=== PATIENT | female | born 1995 | race Caucasian/White ===

== ENCOUNTER → 2022-11-09 | Outpatient (CLI) | payer OTHER ==
--- NOTE | 2022-11-09 10:55 | US ---
EXAMINATION TYPE: Transabdominal DATE OF EXAM: 11/09/2022 10:42 AM COMPARISON: NONE CLINICAL HISTORY: Z36.89 CONFIRM GESTATIONAL AGE. Confirm dates, pt has no complaints at this time EXAM PERFORMED: Transabdominal (TA) EXAM MEASUREMENTS: GESTATIONAL AGE / DATING Physician Established: (9 weeks/1 days) EDC: 06/13/2023 Dates by LMP: (9 weeks/1 days) EDC: 06/13/2023 Dates by First Scan: No previous this is first scan Dates by Current Scan for: (9 weeks/1 days) EDC: 06/13/2023 MATERNAL ANATOMY Uterus: 13.6 x 6.0 x 7.5 cm Right Ovary: 3.9 x 3.5 x 3.7 cm Left Ovary: 2.5 x 1.9 x 2.5 cm Post CDS / Adnexa: wnl Presence of free fluid: No Presence of corpus luteal cyst: Right Ovary= 2.9 x 2.7 x 2.7 cm Presence of subchorionic bleed: `No GESTATION / SURVEY CRL: 2.4 cm (9 weeks/1 days) MSD: wnl Yolk Sac (normal less than 6mm): 4mm Heart Rate: 163 bpm Rhythm: Normal IUP: Viable IUP Age Appropriate Anatomy Cord Insertion: Possible herniation at CI- follow-up recommended Single, viable IUP/ Possible oomphalocele, recommend F/U IMPRESSION: 1. Single intrauterine gestation estimated at 9 weeks 1 day gestation based on the crown-rump length. Cardiac activity measures 163 bpm. 2. Abnormal finding anterior abdominal wall at cord insertion. Short-term follow-up of anatomy is recommended A Yellow level critical message alert has been initiated for Sonia Mejia DO via the [employer] Critical Results System on 11/09/2022 10:53 AM. This message alert has been sent to Sonia Mejia DO via the preferences provided by the clinician for the receipt of Radiology Critical Findings. Mess age ID [id number].
== END | disposition home or self-care (01) ==
LOC: RADUSWWP 10:14
PROVIDERS: ATTEND Obstetrics & Gynecology
DX: Z36.89 Encounter for other specified antenatal screening (principal); Z3A.09 9 weeks gestation of pregnancy
CPT/HCPCS: 76801

== ENCOUNTER 2023-06-09 07:41 | Inpatient (IN) | payer OTHER ==
[2023-06-09] MEDS ORDERED: METHYLERGONOVINE 0.2 MG/ML 1 ML AMP IM PRN (08:31)
[2023-06-09] MEDS ORDERED: LIDOCAINE 0.5% (PF) 5 MG/ML (50 ML SDV) SQ PRN (08:31)
[2023-06-09] MEDS ORDERED: miSOPROStoL 200 MCG TAB PO PRN (08:31)
[2023-06-09] MEDS ORDERED: TERBUTALINE 1 MG/ML VIAL SQ PRN (08:31)
[2023-06-09] MEDS ORDERED: CARBOPROST TROMETHAMINE 250 MCG/ML 1 ML AMP IM PRN (08:31)
[2023-06-09] MEDS ORDERED: OXYTOCIN 10 UNIT/ML 1 ML VIAL IM PRN (08:31)
[2023-06-09] MEDS ORDERED: TRANEXAMIC 1,000 MG/100ML-NACL 1,000 MG in EMPTY BAG 1 BAG IV PRN (08:31)
--- NOTE | 2023-06-09 08:39 | P.HPOB ---
History of Present Illness H&P Date: 06/09/23 Chief Complaint: Contractions This patient is a 28-year-old 2 para 1 female estimated date of confinement 06/13/2023 estimated gestational age 39-3/7 weeks who presents to labor and delivery with complaints of contractions. Patient's care is per Dr. Mejia and is complicated by an abnormal anatomy ultrasound that was suggestive of an omphalocele. Patient was referred to maternal- medicine and the level III ultrasound at that time was normal. Patient's is also been complicated by polyhydramnios and large for gestational age. Patient's been having nonstress tests twice weekly and most recent ultrasound done on May 29 showed the baby to be 8 lbs. 11 oz. which is greater than the 90th percentile. Dr. Mejia has recommended section for delivery due to the risk of shoulder dystocia however patient declined. I have re-discussed this with the patient today she still declines/refuses section for delivery and indicates she is willing to take the risk of a shoulder dystocia and any sequela including permanent injury to her or her baby from this. Patient's also had a positive group B strep culture and states that she also does not want any antibiotics. Again I discussed the risks including possible infection and/or she declines. Patient does not want any intervention at this time including artificial rupture membranes or Pitocin. Past obstetrical history also appears significant for hemorrhage with her first baby that required blood transfusion. Review of Systems Genitourinary: Reports Menstruation: Reports amenorrhea Past Medical History Past Medical History: No Reported History History of Any Multi-Drug Resistant Organisms: None Reported Past Surgical History: No Surgical Hx Reported Past Psychological History: No Psychological Hx Reported Smoking Status: Never smoker Past Alcohol Use History: None Reported Past Drug Use History: Marijuana Medications and Allergies Home Medications Medication Instructions Recorded Confirmed Type Albuterol Inhaler [Ventolin 2 puff INHALATION Q4HR PRN 05/27/14 06/26/15 History Inhaler] Amoxicillin 800 mg PO BID #200 ml 06/26/15 Rx Allergies Allergy/AdvReac Type Severity Reaction Status Date / Time No Known Allergies Allergy Verified 06/26/15 17:55 Exam - OBG Physical Exam Abdomen: bowel sounds normal, no diffuse tenderness, no bruit present, no guarding noted, no hepatomegaly, no splenomegaly, no mass Vulva: both: normal Vagina: normal moisture, no discharge Cervix: no lesion, no discharge Uterus: enlarged (Fundal height is [address] Mejia) Results labs show her blood type is O positive, rubella immune, RPR is nonreactive, HIV is nonreactive, hepatitis B and C were negative, group B strep was positive, Glucola was 122. Ultrasounds as above. Assessment and Plan Assessment: This is a 28-year-old 2 para 1 female 39-3/7 weeks gestation who is admitted to labor and delivery with complaints of regular painful contractions found to be 6 cm dilated in early labor. Patient has a positive group B strep culture and per standard of care she is recommended to be started on IV antibiotics however she refuses. I did have a discussion with her and apparently she's had this discussion with Dr. Mejia in the office that unfortunately this increases her baby's risk of significant infection and nontreatment could result in this infection and/or . She and her partner acknowledge this risk and still declined antibiotics. I also reviewed her records and ultrasound and it appears she's had a discussion with Dr. Mejia and was recommended to have a section for delivery secondary to large for gestational age greater than the 90th percentile and increased risk of shoulder dystocia and/or maternal trauma. I did offer her section at this time and I also rediscussed these risks including risk of shoulder dystocia including possible injury including, but not limited to, brachial plexus injury or other permanent injuries. I explained this in detail to the patient (and her partner) and she understands that this is unpredictable event and even if the appropriate maneuvers are done at the time of delivery it could still result in an adverse maternal or outcome. I also informed her that at any time she changes her mind and wishes to proceed with section this would be done immediately. All the patient's questions were answered. (1) 39 weeks gestation of Current Visit: Yes Status: Acute Code(s): Z3A.39 - 39 WEEKS GESTATION OF SNOMED Code(s): 87255063 (2) Normal labor Current Visit: Yes Status: Acute Code(s): O80 - ENCOUNTER FOR FULL-TERM UNCOMPLICATED DELIVERY; Z37.9 - OUTCOME OF DELIVERY, UNSPECIFIED SNOMED Code(s): 96028256 (3) Polyhydramnios affecting Current Visit: Yes Status: Acute Code(s): O40.9XX0 - POLYHYDRAMNIOS, UNSP TRIMESTER, NOT APPLICABLE OR UNSP SNOMED Code(s): 09053316 (4) Large for gestational age fetus Current Visit: Yes Status: Acute Code(s): WWN6499 - SNOMED Code(s): 521620515 (5) Group B streptococcal carriage complicating Current Visit: Yes Status: Acute Code(s): O99.820 - STREPTOCOCCUS B CARRIER STATE COMPLICATING SNOMED Code(s): 538265703544362 (6) Non compliance with medical treatment Current Visit: Yes Status: Acute Code(s): Z91.199 - PT NONCOMPL WITH OTHER MED TRTMT AND REGIMEN D/T UNSP REASON SNOMED Code(s): 2800055
[2023-06-09] MEDS ORDERED: LACTATED RINGERS 1,000 ML IV SCH (08:45)
[2023-06-09 09:43] LABS: Basophils % (A) 0 %; Eosinophils # (A) 0.1 k/uL (0-0.7); Eosinophils % (A) 1 %; HCT 33.8 % (34.0-46.0); HGB 11.5 gm/dL (11.4-16.0); Lymphocytes # (A) 1.6 k/uL (1.0-4.8); Lymphocytes % (A) 13 %; MCH 28.2 pg (25.0-35.0); MCHC 34.2 g/dL (31.0-37.0); MCV 82.6 fL (80.0-100.0); Mean Platelet Volume 9.2; Monocytes # (A) 0.6 k/uL (0-1.0); Monocytes % (A) 5 %; Neutrophils % (A) 81 %; Platelet Count 215 k/uL (150-450); RBC 4.09 m/uL (3.80-5.40); RDW 13.4 % (11.5-15.5); WBC 12.3 k/uL (3.8-10.6)
[2023-06-09 10:13] LABS: Amphetamine Screen,Urine Not Detected (NotDetected); Barbiturate Screen,Urine Not Detected (NotDetected); Benzodiazepines Screen,Urine Not Detected (NotDetected); Cocaine Screen,Urine Not Detected (NotDetected); Methadone Screen, Urine Not Detected (NotDetected); Opiate Screen,Urine Not Detected (NotDetected); Oxycodone Screen, Urine Not Detected (NotDetected); Phencyclidine Screen,Urine Not Detected (NotDetected); Tricyclic Antidepressant,Urine Not Detected (NotDetected); Urn Cannabinoid Scrn Not Detected (NotDetected)
[2023-06-09] MEDS: OXYTOCIN 30 UNITS/500 ML NS 30 UNIT in SALINE 1 500ML.BAG IV SCH ×2 (14:46→15:17)
[2023-06-09] MEDS ORDERED: BENZOCAINE/MENTHOL SPRAY 1 GM/SPRAY AEROSOL TOPICAL PRN ×2 (15:13→15:15)
--- NOTE | 2023-06-09 15:14 | P.PROBDLV ---
Vaginal Delivery Note - . Vaginal Delivery Note: Normal spontaneous vaginal delivery viable female Apgars 9 and 9 delivery time is 1442 hrs. Please see dictated H&P for intimate details of this patient's admission. In brief summary this is a 28-year-old 2 para 1 female 39-3/7 weeks gestation who is admitted to labor and delivery with complaints of regular painful contractions. Patient's found to be 6 cm dilated on admission. Please see dictated H&P for discussion of route of delivery was recommended by Dr. Mejia the patient proceed with section secondary to suspected macrosomia however patient declined. I did have another discussion with her and after discussing benefits and risks of vaginal delivery she wished to proceed with vaginal delivery with the understanding of possible complications that could not be predicted. Patient has a positive group B strep culture however also refused antibiotic treatment. Again we discussed possible infectious risks to the baby and the postal service mail processor did talk to the patient as well. Patient's labor progressed quite slowly when she had about 8 cm dilated she requested rupture of membranes. This was done for clear fluid. Patient progressed in the next few hours thereafter and got to complete. Patient pushed the head to the perineum. Posterior perineum was supported we have controlled delivery of the infant's head over the intact perineum. Mouth and nares are bulb suctioned. 's head was occiput right anterior. There is no evidence of a nuchal cord. Due to suspected macrosomia, patient is then placed in Maurice position. With gentle downward traction patient is able to deliver the anterior shoulder and then posterior shoulder and rest this infant's body. This is a vigorous viable female infant Apgars are 9 and 9 delivery time is 1442 hrs. After delivery of the the infant is late on the mother's abdomen. After the umbilical cord is done pulsating is doubly clamped and then cut. The placenta is then spontaneously delivered intact. There is some uterine atony at this time and due to her history of hemorrhage with her first baby at prophylactically give her a dose of Methergine and Pitocin. This time with uterine massage the uterus firms up well and bleeding subsides. Inspection of perineum shows second-degree perineal lacerations repaired with 3-0 Vicryl usual fashion. She also some small periurethral lacerations that did not require repair. All counts are correct 3. Estimated blood loss is approximately 300 mL. There are no complications. weight was 4340 g or 9 lbs. 9 oz.
[2023-06-09] MEDS ORDERED: diphenhydrAMINE 25 MG CAP PO PRN (15:15)
[2023-06-09] MEDS ORDERED: ACETAMINOPHEN TAB 325 MG TAB PO PRN (15:15)
[2023-06-09] MEDS ORDERED: HYDROCORTISONE 2.5% RECTAL CREAM 30 GM TUBE RECTAL PRN (15:15)
[2023-06-09] MEDS ORDERED: diphenhydrAMINE 50 MG/ML 1 ML VIAL IVP PRN (15:15)
[2023-06-09] MEDS ORDERED: SIMETHICONE 80 MG CHEWABLE PO PRN (15:15)
[2023-06-09] MEDS ORDERED: bisacodyL 10 MG SUPP RECTAL PRN (15:15)
[2023-06-09] MEDS ORDERED: IBUPROFEN 600 MG TAB PO PRN (15:15)
[2023-06-09] MEDS ORDERED: ZOLPIDEM 5 MG TAB PO PRN (15:15)
[2023-06-09] MEDS ORDERED: LANOLIN CREAM 5 GM TUBE TOPICAL PRN (15:15)
[2023-06-09] MEDS ORDERED: OXYTOCIN 30 UNITS/500 ML NS 30 UNIT in SALINE 1 500ML.BAG IV SCH (15:30)
[2023-06-09 20:28] VITALS: RESP 16
[2023-06-09] MEDS: SENNOSIDES-DOCUSATE SODIUM 1 EACH TAB PO SCH (20:34)
--- NOTE | 2023-06-10 06:54 | P.PNOBGVD ---
Subjective - Subjective Patient reports: Reports appetite normal, Reports voiding normally, Reports pain well controlled, Reports ambulating normally : doing well, in NICU (Babies requiring IV antibiotics due to an abnormal CBC) Objective - Latest Vital Signs Latest vital signs: Vital Signs Temp Pulse Resp BP Pulse Ox 06/09/23 23:44 98.7 F 98 16 117/79 96 06/09/23 20:00 97.9 F 99 16 108/70 99 06/09/23 17:01 97.4 F L 89 18 125/70 06/09/23 16:31 89 18 136/63 06/09/23 16:01 90 18 135/65 06/09/23 15:46 86 18 149/70 06/09/23 15:31 87 18 117/66 06/09/23 15:16 95 16 132/72 06/09/23 15:01 97.8 F 91 18 138/80 06/09/23 13:30 96.9 F L 123 H 18 135/86 97 Intake and Output 06/09/23 06/09/23 06/10/23 14:59 22:59 06:59 Intake Total 500 Output Total 505 Balance -5 Intake: Intake, IV Titration 500 Amount Oxytocin 30 Units/500 ml 500 Ns 30 unit In Saline 1 500ml.bag @ Per Protocol IV .Q0M [facility] Rx#:[id number] Output: Estimated Blood Loss 300 Output, Quantitative 205 Blood Loss Other: # Voids 3 1 Weight 102.058 kg - Exam Lungs: bilateral: normal Chest: Normal S1, Normal S2 Extremities: Present: normal Abdomen: Present: normal appearance, soft Uterus: Present: normal, firm - Labs Labs: Abnormal Lab Results - Last 24 Hours (Table) 06/09/23 Range/Units 08:34 WBC 12.3 H (3.8-10.6) k/uL Hct 33.8 L (34.0-46.0) % Neutrophils # 10.0 H (1.3-7.7) k/uL Assessment and Plan Assessment: day #1. Patient is resting without new complaints. Vital signs are stable she's afebrile. Uterus is firm nontender she's having normal lochia. Patient's baby is in special care due to an abnormal CBC and receiving IV antibiotics. Plan today is to continue routine care. We'll most likely discharge home tomorrow. (1) 39 weeks gestation of Current Visit: Yes Status: Acute Code(s): Z3A.39 - 39 WEEKS GESTATION OF SNOMED Code(s): 40911064 (2) Normal labor Current Visit: Yes Status: Acute Code(s): O80 - ENCOUNTER FOR FULL-TERM UNCOMPLICATED DELIVERY; Z37.9 - OUTCOME OF DELIVERY, UNSPECIFIED SNOMED Code(s): 06703247 (3) Polyhydramnios affecting Current Visit: Yes Status: Acute Code(s): O40.9XX0 - POLYHYDRAMNIOS, UNSP TRIMESTER, NOT APPLICABLE OR UNSP SNOMED Code(s): 51425564 (4) Large for gestational age fetus Current Visit: Yes Status: Acute Code(s): OEJ2876 - SNOMED Code(s): 792999122 (5) Group B streptococcal carriage complicating Current Visit: Yes Status: Acute Code(s): O99.820 - STREPTOCOCCUS B CARRIER STATE COMPLICATING SNOMED Code(s): 498070810101474 (6) Non compliance with medical treatment Current Visit: Yes Status: Acute Code(s): Z91.199 - PT NONCOMPL WITH OTHER M ED TRTMT AND REGIMEN D/T UNSP REASON SNOMED Code(s): 9362993
[2023-06-10 07:31] LABS: Basophils % (A) 0 %; Eosinophils # (A) 0.1 k/uL (0-0.7); Eosinophils % (A) 0 %; HCT 29.1 % (34.0-46.0); Lymphocytes # (A) 1.7 k/uL (1.0-4.8); Lymphocytes % (A) 14 %; MCH 28.2 pg (25.0-35.0); MCV 82.8 fL (80.0-100.0); Mean Platelet Volume 9.4; Monocytes # (A) 0.7 k/uL (0-1.0); Monocytes % (A) 5 %; Neutrophils # (A) 9.8 k/uL (1.3-7.7); Neutrophils % (A) 79 %; Platelet Count 201 k/uL (150-450); RBC 3.52 m/uL (3.80-5.40); RDW 13.8 % (11.5-15.5); WBC 12.3 k/uL (3.8-10.6)
[2023-06-10 07:49] LABS: HGB 9.9 gm/dL (11.4-16.0)
[2023-06-10] MEDS: SENNOSIDES-DOCUSATE SODIUM 1 EACH TAB PO SCH ×2 (08:56→18:28)
--- NOTE | 2023-06-11 05:48 | P.PNOBGVD ---
Subjective - Subjective Patient reports: Reports appetite normal, Reports voiding normally, Reports pain well controlled, Reports ambulating normally : doing well, in NICU Objective - Latest Vital Signs Latest vital signs: Vital Signs Temp Pulse Resp BP Pulse Ox 06/11/23 04:00 98.1 F 76 16 116/68 06/11/23 00:00 97.9 F 85 16 116/69 06/10/23 16:00 98.7 F 99 16 118/78 99 06/10/23 08:00 98.7 F 104 H 16 100/51 Intake and Output 06/10/23 06/10/23 06/11/23 14:59 22:59 06:59 Intake Total 600 Balance 600 Intake: Oral 600 Other: # Voids 3 2 2 - Exam Lungs: bilateral: normal Chest: Normal S1, Normal S2 Extremities: Present: normal Abdomen: Present: normal appearance, soft Uterus: Present: normal, firm - Labs Labs: Abnormal Lab Results - Last 24 Hours (Table) 06/10/23 Range/Units 07:15 WBC 12.3 H (3.8-10.6) k/uL RBC 3.52 L (3.80-5.40) m/uL Hgb 9.9 L D (11.4-16.0) gm/dL Hct 29.1 L (34.0-46.0) % Neutrophils # 9.8 H (1.3-7.7) k/uL Assessment and Plan Assessment: day #2. Patient is resting without new complaints. Vital signs are stable she's afebrile. Uterus is firm nontender and she is having normal lochia. Patient's baby is still in special care receiving IV antibiotics. Plan today is to continue routine care discharge home later today. (1) 39 weeks gestation of Current Visit: Yes Status: Acute Code(s): Z3A.39 - 39 WEEKS GESTATION OF SNOMED Code(s): 31935354 (2) Normal labor Current Visit: Yes Status: Acute Code(s): O80 - ENCOUNTER FOR FULL-TERM UNCOMPLICATED DELIVERY; Z37.9 - OUTCOME OF DELIVERY, UNSPECIFIED SNOMED Code(s): 86045251 (3) Polyhydramnios affecting Current Visit: Yes Status: Acute Code(s): O40.9XX0 - POLYHYDRAMNIOS, UNSP TRIMESTER, NOT APPLICABLE OR UNSP SNOMED Code(s): 20647875 (4) Large for gestational age fetus Current Visit: Yes Status: Acute Code(s): MMV1524 - SNOMED Code(s): 342353257 (5) Group B streptococcal carriage complicating Current Visit: Yes Status: Acute Code(s): O99.820 - STREPTOCOCCUS B CARRIER STATE COMPLICATING SNOMED Code(s): 985435668643410 (6) Non compliance with medical treatment Current Visit: Yes Status: Acute Code(s): Z91.199 - PT NONCOMPL WITH OTHER MED TRTMT AND REGIMEN D/T UNSP REASON SNOMED Code(s): 5453614
--- NOTE | 2023-06-11 05:53 | P.DS ---
Providers Date of admission: 06/09/23 07:51 Expected date of discharge: 06/11/23 Attending physician: Sonia Mejia Primary care physician: Stated None - Discharge Diagnosis(es) (1) 39 weeks gestation of Current Visit: Yes Status: Acute (2) Normal labor Current Visit: Yes Status: Acute (3) Polyhydramnios affecting Current Visit: Yes Status: Acute (4) Large for gestational age fetus Current Visit: Yes Status: Acute (5) Group B streptococcal carriage complicating Current Visit: Yes Status: Acute (6) Non compliance with medical treatment Current Visit: Yes Status: Acute Hospital Course: Please see dictated H&P for intimate details of this patient's admission. Brief summary this is a 28-year-old 2 para 1 female 39-3/7 weeks admitted to labor and delivery in active labor. Patient is admitted she and does refuse IV antibiotics for positive strep culture. She goes on to have a vaginal delivery viable female . Please see dictated delivery note. day #2 patient's felt be stable for discharge home follow up with Dr. Mejia 6 weeks. Procedures: Normal spontaneous vaginal delivery Patient Condition at Discharge: Good Plan - Discharge Summary New Discharge Prescriptions: New Ibuprofen [Motrin] 600 mg PO Q6HR PRN #30 tab PRN Reason: Mild Pain (Scale 1 To 3) No Action Vit No.179/Iron/Folic [ Tablet] 1 each PO DAILY Discharge Medication List Vit No.179/Iron/Folic [ Tablet] 1 each PO DAILY 06/09/23 [History] Ibuprofen [Motrin] 600 mg PO Q6HR PRN #30 tab 06/11/23 [Rx] Follow up Appointment(s)/Referral(s): Sonia Mejia DO [Doctor of Osteopathic Medicine] - 07/22/23 11:30 am (Please see Dr. Mejia for a check on 07/22/2023 @11:30) Patient Instructions/Handouts: Vaginal Delivery (DC) Activity/Diet/Wound Care/Special Instructions: No intercourse or anything per vagina for 6 weeks. Please call if any fever, chills, excessive vaginal bleeding, and/or abdominal pain Discharge Disposition: HOME SELF-CARE
[2023-06-11] MEDS: SENNOSIDES-DOCUSATE SODIUM 1 EACH TAB PO SCH (08:04)
[2023-06-11 16:58] VITALS: BP 118/67; PULSE 85; TEMP 98
== END 2023-06-11 18:00 | disposition home or self-care (01) | DRG 560 ==
LOC: FBPOP 07:41 → 4FBP 07:51
PROVIDERS: ADMIT Obstetrics & Gynecology; ATTEND Obstetrics & Gynecology
PROC: 10E0XZZ Delivery of Products of Conception, External Approach (ICD-10-PCS; principal; 2023-06-09)
PROC: 10907ZC Drainage of Amniotic Fluid, Therapeutic from Products of Conception, Via Natural or Artificial Opening (ICD-10-PCS; principal; 2023-06-09)
PROC: 0KQM0ZZ Repair Perineum Muscle, Open Approach (ICD-10-PCS; principal; 2023-06-09)
DX: O36.63X0 Maternal care for excessive fetal growth, third trimester, not applicable or unspecified (principal); O99.824 Streptococcus B carrier state complicating childbirth; O40.3XX0 Polyhydramnios, third trimester, not applicable or unspecified; O70.1 Second degree perineal laceration during delivery; O62.2 Other uterine inertia; O71.82 Other specified trauma to perineum and vulva; Z37.0 Single live birth; Z3A.39 39 weeks gestation of pregnancy; Z79.899 Other long term (current) drug therapy; Z91.199 Patient's noncompliance with other medical treatment and regimen due to unspecified reason
CPT/HCPCS: 59025; 80306; 85025; 86850; 86900; 86901; 88307; 99213